=== PATIENT | female | born 1985 | race Caucasian/White ===

== ENCOUNTER → 2018-08-01 14:35 | Outpatient (CLI) | payer OTHER, BC, SELFPAY ==
[2018-08-01 15:40] LABS: Hematocrit 42.6 % (37-47); Hemoglobin 14.3 g/dl (12.0-15.0); Mean Corp Hgb Conc 33.6 g/gl (32-36); Mean Corpuscular Hgb 29.9 pg (27.0-32.0); Mean Corpuscular Volume 88.9 fL (81-99); Mean Platelet Vol. 11.2 fl (6.2-12.0); Platelet Count 200 K/mm3 (150-450); RBC Distribution Width SD 42.1 fl (35.1-43.9); Red Blood Count 4.79 M/mm3 (4.2-5.4); White Blood Count 5.9 K/mm3 (4.4-11.0)
[2018-08-01 15:45] LABS: Scan Indicated on CBC? Y/N NO
[2018-08-01 16:09] LABS: Hemoglobin A1c 5.3 % (4.2-6.3)
[2018-08-01 16:18] LABS: Estradiol 40.6 pg/mL; T4 Free Direct 1.02 ng/dL (0.76-1.46); Thyroid Stim Hormone (TSH) 1.94 uIU/mL (0.358-3.74)
[2018-08-01 16:19] LABS: Progesterone Level 2.98 ng/mL (See Comment)
[2018-08-10 11:59] LABS: HPV Reflexed? NOT INDICATED
== END ==
PROVIDERS: Visit Provider Obstetrics & Gynecology
DX: Z12.4 Encounter for screening for malignant neoplasm of cervix (principal); L65.9 Nonscarring hair loss, unspecified; R53.83 Other fatigue
CPT/HCPCS: 36415; 82670; 83036; 84144; 84403; 84439; 84443; 84481; 85027; 88175; G0145

== ENCOUNTER → 2019-03-07 16:30 | Outpatient (CLI) | payer OTHER, BC, SELFPAY ==
[2018-08-28 09:09] VITALS: BMI 17.9
[2019-03-07 18:36] LABS: hCG Titer Quant., Serum 59681 mIU/mL (1-3)
== END ==
PROVIDERS: Visit Provider Obstetrics & Gynecology
DX: O20.0 Threatened abortion (principal); Z3A.00 Weeks of gestation of pregnancy not specified
CPT/HCPCS: 36415; 84702; 86900

== ENCOUNTER → 2019-03-09 16:12 | Outpatient (CLI) | payer OTHER, BC, SELFPAY ==
[2018-08-28 09:09] VITALS: BMI 17.9
[2019-03-09 19:47] LABS: Chlamydia Trachomatis by PCR Negative (Negative); Neisserai gonorrhoeae by PCR Negative (Negative); Probe Check PASS; Sample Adequacy Control PASS; Specimen Processing Control PASS
[2019-03-14 16:55] LABS: HPV Reflexed? NOT INDICATED
== END ==
PROVIDERS: Visit Provider Obstetrics & Gynecology
DX: Z12.4 Encounter for screening for malignant neoplasm of cervix (principal); Z11.3 Encounter for screening for infections with a predominantly sexual mode of transmission; Z32.01 Encounter for pregnancy test, result positive
CPT/HCPCS: 87491; 87591; 88175; G0145

== ENCOUNTER → 2019-03-30 16:36 | Outpatient (CLI) | payer OTHER, BC, SELFPAY ==
[2019-03-30 17:46] LABS: Color, Urine Yellow (Yellow); Glucose, Dipstick Normal (Normal); Ketone-Dipstick Negative (Negative); Leukocyte Esterase-Dipstick 25 /ul (Negative); Nitrite-Dipstick Negative (Negative); Occult Blood-Urine Negative /ul (Negative); Protein-Dipstick Negative (Negative); Specific Gravity, Urine 1.005 (1.002-1.030); Urine Bilirubin Dipstick Negative (Negative); Urine Clarity Sl. Cloudy (Clear); Urine Urobilinogen Normal (Normal)
[2019-03-30 17:54] LABS: Absolute Lymphocyte Count 1.88 X10^3/ul (0.83-4.51); Absolute Neutrophil Count 4.2 X10^3/uL (2.0-7.7); Basophil# 0.02 X10^3/uL; Basophil% 0.3 % (0-1); Eosinophil# 0.07 X10^3/uL; Eosinophils% 1.1 % (0-5); Hematocrit 36.9 % (37-47); Hemoglobin 12.5 g/dl (12.0-15.0); Lymphocyte # 1.88 X10^3/ul (4.0); Lymphocyte % 28.4 % (19-41); Mean Corp Hgb Conc 33.9 g/gl (32-36); Mean Corpuscular Hgb 29.6 pg (27.0-32.0); Mean Corpuscular Volume 87.4 fL (81-99); Mean Platelet Vol. 10.4 fl (6.2-12.0); Monocyte# 0.44 X10^3/uL; Monocyte% 6.6 % (0-10); Neutrophil % 63.4 % (47-70); Platelet Count 182 K/mm3 (150-450); RBC Distribution Width CV 13.3 % (11.6-14.6); RBC Distribution Width SD 42.7 fl (35.1-43.9); Red Blood Count 4.22 M/mm3 (4.2-5.4); White Blood Count 6.6 K/mm3 (4.4-11.0)
[2019-03-30 17:56] LABS: POSITIVE COUNT NO; POSITIVE DIFFERENTIAL NO; POSITIVE MORPHOLOGY NO
[2019-03-30 18:29] LABS: Thyroid Stim Hormone (TSH) 0.78 uIU/mL (0.358-3.74)
[2019-03-30 19:03] LABS: HIV - WCH Non-Reactive (Nonreactive); Rubella IgG 210.7 IU/mL
[2019-03-31 02:05] LABS: Prenatal RPR NONREACTIVE (NONREACTIVE)
[2019-04-01 12:33] LABS: HEPATITIS B SURFACE AG Negative (Negative); Hep C Antibodies <0.1 s/co ratio (0.0-0.9)
== END ==
PROVIDERS: Visit Provider Obstetrics & Gynecology
DX: Z34.81 Encounter for supervision of other normal pregnancy, first trimester (principal)
CPT/HCPCS: 36415; 81002; 84443; 85025; 86703; 86762; 86803; 87340

== ENCOUNTER → 2019-04-10 | Outpatient (CLI) | payer OTHER, BC, SELFPAY ==
[2018-08-28 09:09] VITALS: BMI 17.9
== END | disposition home or self-care (01) ==
LOC: LAB 16:24
PROVIDERS: Family Provider Family Medicine; PCP Family Medicine
DX: O99.111 Other diseases of the blood and blood-forming organs and certain disorders involving the immune mechanism complicating pregnancy, first trimester (principal); D68.51 Activated protein C resistance; Z82.49 Family history of ischemic heart disease and other diseases of the circulatory system; Z3A.00 Weeks of gestation of pregnancy not specified
CPT/HCPCS: 36415; 81241

== ENCOUNTER → 2019-08-04 15:07 | Outpatient (CLI) | payer OTHER, BC, SELFPAY ==
[2019-08-04 16:15] LABS: Hematocrit 36.1 % (37-47); Hemoglobin 11.9 g/dL (12.0-15.0); Mean Corpuscular Hgb 31.2 pg (27.0-32.0); Mean Corpuscular Volume 94.8 fL (81-99); Mean Platelet Vol. 10.9 fl (6.2-12.0); Platelet Count 159 K/mm3 (150-450); RBC Distribution Width CV 13.4 % (11.6-14.6); RBC Distribution Width SD 46.4 fl (35.1-43.9); Red Blood Count 3.81 M/mm3 (4.2-5.4)
[2019-08-04 16:19] LABS: Glucose Challenge Gest 1H 50g 100 mg/dL (70-140)
== END ==
PROVIDERS: Visit Provider Obstetrics & Gynecology
DX: Z34.83 Encounter for supervision of other normal pregnancy, third trimester (principal)
CPT/HCPCS: 36415; 82950; 85027; 86850

== ENCOUNTER 2019-09-07 04:05 | Outpatient (CLI) | payer OTHER, BC, SELFPAY ==
[2019-09-07 04:37] VITALS: BMI 23.7
[2019-09-07 04:58] LABS: Color, Urine Yellow (Yellow); Glucose, Dipstick Normal (Normal); Ketone-Dipstick Negative (Negative); Leukocyte Esterase-Dipstick Negative /ul (Negative); Nitrite-Dipstick Negative (Negative); Occult Blood-Urine Negative /ul (Negative); Protein-Dipstick Negative (Negative); Urine Bilirubin Dipstick Negative (Negative); Urine Clarity Sl. Cloudy (Clear); Urine Urobilinogen Normal (Normal)
[2019-09-07] MEDS: Acetaminophen 500 MG Tablet 1000 MG PO (06:14)
[2019-09-07 06:20] VITALS: RESP 18
--- NOTE | 2019-09-15 09:04 | OB.TRI.HP_ITS ---
History of Present Illness Was patient seen by the physician?: No Reason For Visit: R/O LABOR Date of Service: 09/07/19 Final GLORY: 10/24/19 Final GLORY Source: US <20 weeks Gestational age: 33 Weeks and 2 Days History of Present Illness: 33+ week intrauterine with mid to low back pain. Also some left lower quadrant in the abdomen. Allergies chlorhexidine Allergy (Verified 09/07/19 04:37) Rash acetaminophen [From Vicodin] Adverse Reaction (Verified 09/07/19 04:38) Other Insomnia, vomiting hydrocodone [From Vicodin] Adverse Reaction (Verified 09/07/19 04:38) Other Insomnia, vomiting - Pertinent Past Medical History Medical History: Past Medical History (Last Updated 08/28/18 @ 09:15 by Loli Dejesus) Asthma Fatigue HISTORY OF TWO CHILD BIRTHS Severe headache Surgical History: Past Surgical History (Last Updated 08/28/18 @ 09:15 by Loli Dejesus) HISTORY OF APPENDIX RUPTURE HISTORY OF LEFT ANKLE SURGERY Laboratory Studies: Laboratory Tests 09/07/19 Range/Units 04:10 Urine Color Yellow (Yellow) Urine Clarity Sl. Cloudy (Clear) Urine pH 7.0 (5.0 - 8.0) Ur Specific [place] 1.010 (1.002-1.030) Urine Protein Negative (Negative) mg/dl Urine Glucose (UA) Normal (Normal) mg/dl Urine Ketones Negative (Negative) mg/dl Urine Occult Blood Negative (Negative) /ul Urine Nitrite Negative (Negative) Urine Bilirubin Negative (Negative) mg/dL Urine Urobilinogen Normal (Normal) mg/dl Ur Leukocyte Esterase Negative (Negative) /ul Physical Exam Vitals: Vital Signs Resp 18 09/07/19 06:20 NST - FHR Rate Baby A NST Reactive:: Yes FHR Category:: Category I Impression/Plan 33+ week intrauterine with low back pain. Likely some round ligament pain. Reactive nonstress test and minimal contractions noted on monitor. Cervix nonthreatening. UA was negative cervix was 1 cm 60% effaced -2 and firm. Given this will discharge to home with routine follow-up. Return if back pain worsens. Use Tylenol to assist with discomfort and increase p.o. fluids.
== END 2019-09-07 06:20 | disposition home or self-care (01) ==
LOC: WPOUT 04:24 → WP 04:30
PROVIDERS: Referring Provider Obstetrics & Gynecology; Visit Provider Obstetrics & Gynecology
DX: O26.893 Other specified pregnancy related conditions, third trimester (principal); Z3A.33 33 weeks gestation of pregnancy; M54.5 Low back pain
CPT/HCPCS: 59025; 59050; 81002; 99218; G0378

== ENCOUNTER → 2019-09-26 16:46 | Outpatient (CLI) | payer OTHER, BC, SELFPAY ==
[2019-09-07 04:37] VITALS: BMI 23.7
== END ==
PROVIDERS: Referring Provider Obstetrics & Gynecology; Visit Provider Obstetrics & Gynecology
DX: Z36.85 Encounter for antenatal screening for Streptococcus B (principal)
CPT/HCPCS: 87081

== ENCOUNTER → 2019-10-10 16:37 | Outpatient (CLI) | payer OTHER, BC, SELFPAY | PROVIDERS: Visit Provider Advanced Practice Midwife | DX: O99.513 Diseases of the respiratory system complicating pregnancy, third trimester (principal); J02.9 Acute pharyngitis, unspecified; Z3A.00 Weeks of gestation of pregnancy not specified | CPT/HCPCS: 87880 ==

== ENCOUNTER 2019-10-24 07:20 | Inpatient (IN) | payer OTHER, BC, SELFPAY ==
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
[2019-10-24 07:45] VITALS: BMI 23.6
[2019-10-24] MEDS: Lactated Ringers 1,000 ML 200 ML IV ×2 (07:50→13:46)
[2019-10-24 08:14] LABS: Absolute Lymphocyte Count 1.94 X10^3/uL (0.83-4.51); Absolute Neutrophil Count 5.1 X10^3/uL (2.0-7.7); Basophil# 0.03 X10^3/uL; Basophil% 0.4 % (0-1); Eosinophil# 0.13 X10^3/uL; Eosinophils% 1.7 % (0-5); Hematocrit 38.5 % (37-47); Lymphocyte # 1.94 X10^3/ul (4.0); Lymphocyte % 24.7 % (19-41); Mean Corp Hgb Conc 33.8 g/dL (32-36); Mean Corpuscular Hgb 31.3 pg (27.0-32.0); Mean Corpuscular Volume 92.5 fL (81-99); Mean Platelet Vol. 10.9 fl (6.2-12.0); Monocyte# 0.57 X10^3/uL; Monocyte% 7.3 % (0-10); NRBC Flagged by Analyzer 0 % (0-5); Neutrophil % 64.9 % (47-70); Platelet Count 157 K/mm3 (150-450); RBC Distribution Width CV 13.4 % (11.6-14.6); RBC Distribution Width SD 45.2 fl (35.1-43.9); Red Blood Count 4.16 M/mm3 (4.2-5.4); White Blood Count 7.9 K/mm3 (4.4-11.0)
[2019-10-24] MEDS: Oxytocin 30 units/NS 500 ml 30 UNITS/500 ML IV.SOLN IV (08:30)
[2019-10-24 08:32] LABS: International Normalized Ratio 0.9; Prothrombin Time (Protime)PT. 12.2 SECONDS (11.7-14.9)
[2019-10-24 08:37] LABS: Partial Thromboplast Time 26.5 Seconds (24.1-36.2)
[2019-10-24] MEDS: Lactated Ringers 500 ML 999 ML IV (10:45)
[2019-10-24] MEDS: fentaNYL-bupivacaine (epidural) 100 ML BAG EPIDURAL (11:11)
--- NOTE | 2019-10-24 12:49 | PCM.PN.BLA ---
Progress Note LABOR PROGRESS NOTE Comfortable w/ epidural AVSS Pitocin inc to 12 mIU/min EFM 120-130s avg variability and accels. Category I tracing UCs q 4-6 mins CX: 5/80/-2 per RN check A/P: 40 wk induction heterozygous Factor V Leiden. Category I tracing. continue Pitocin per protocol Anticipate .
[2019-10-24] MEDS: Oxytocin 30 units/NS 500 ml 30 UNITS/500 ML IV.SOLN 334 UNITS IV (15:06)
--- NOTE | 2019-10-24 17:44 | PCM.OPRPT ---
Vaginal Delivery Maternal Presentation: Elective Induction 40 wk induction of labor. Factor V Leiden heterozygote , on bid heparin Method of Induction: Pitocin, Amniotomy Amniotic Membrane Rupture Type: Artificial Amniotic Fluid Description: Clear Final GLORY: 10/24/19 Final GLORY Source: US <20 weeks Gestational age: 40 Weeks and 0 Days Date of Procedure: 10/24/19 Pre-Operative Diagnosis: 40 wk induction Post-Operative Diagnosis: same Surgery/ Procedure Performed: Spontaneous Vaginal Delivery Anesthesiologist: [place] Hsu MD Type of Anesthesia: Epidural Description of Procedure: of a san viable female infant over intact perineum Head delivered RAHUL. No nuchal cord. Shoulders delivered immediately after head. OP and nares bulb suctioned after delivery. Infant to maternal abdomen with spont cry. Delayed cord clamping for 30 sec then cord clamped times two and cut. Routine cord blood for typing collected. Baby Apgars 9/9 PP exam : no lacerations, no repair required Placenta delivered by spont expulsion, expression. normal appearing and intact with trailing membranes. 3V cord EBL 300 cc Pt and tolerated delivery well to recovery, stable condition Ray jim counts correct times two. Presentation: Vertex, RAHUL Placental Delivery Description: Spontaneous, Expressed Placenta Disposition: [facility] Cord Vessel Description: 3 Vessels Cord Entanglement: None Estimated Blood Loss: 300 A gender: Female (1 minute): 9 (5 minute): 9 Episiotomy Description: None Laceration: None Medications given after delivery: IV Pitocin Complications: None
[2019-10-24] MEDS: Acetaminophen 500 MG Tablet 1000 MG PO (17:50)
--- NOTE | 2019-10-24 17:52 | DCINST_ITS ---
Discharge Diet: No Restrictions Discharge Activity: May Shower, May Take a Tub Bath Return to work on:: 12/04/19 May resume sexual activity in: 4-6 weeks Additional Activity Instructions:: Nothing in the vagina for 4-6 weeks. You may return to work/school in 6 weeks. Additional Instructions: If you experience any of the following, contact your healthcare provider. * Bleeding that soaks a pad every hour for 2 hours * Fever 100.4 or higher * Unrelieved abdominal pain * Problems urinating (including inability to urinate or burning while urinating). * Visual changes * Severe headache * Flu-like symptoms * Pain or redness in one of both of your breasts * Pain, warmth, tenderness or swelling in your legs, especially the calf area * Frequent nausea and vomiting * Symptoms of depression or anxiety If you experience any of the following, call 911 or go to the nearest Emergency Room. * Chest pain * Problems breathing * Seizure activity * Partial or complete paralysis of a body part, slurred speech, weakness or drooping of the face, or a sudden inability to walk or hold your balance Allergies/Adverse Reactions: Allergies chlorhexidine Allergy (Verified 09/07/19 04:37) Rash acetaminophen [From Vicodin] Adverse Reaction (Verified 09/07/19 04:38) Other Insomnia, vomiting hydrocodone [From Vicodin] Adverse Reaction (Verified 09/07/19 04:38) Other Insomnia, vomiting Medications to take at Discharge Enoxaparin Sodium [Lovenox] 40 mg SQ DAILY 09/07/19 Vits [Prenatabs FA] 1 tab PO DAILY 09/07/19 Albuterol Sulfate [Albuterol Sulfate Hfa] 10/24/19 Enoxaparin [Lovenox] 40 mg SUBCUT DAILY@0600 42 Days #42 syringe 10/24/19 The following prescriptions were given: Enoxaparin [Lovenox] 40 mg SUBCUT DAILY@0600 42 Days #42 syringe Transmission Status: Pending to [facility] When: Call to make an appointment with your doctor in 6 weeks. If you had elevated Blood Pressure or 4th degree laceration you will need to be seen in 2 weeks. Please Follow Up With: Kain Hsu MD - [phone] When: for check up in 6 wk as planned. Primary Care Physician: Juan Babcock [Primary Care Provider] - Test Results: Test results from this visit will be discussed in further detail at your follow- up appointment, if applicable. Proposed Discharge Date: 10/26/19
[2019-10-24 20:08] VITALS: BP 107/57; PULSE 73; RESP 16; TEMP 36.7
[2019-10-24 23:58] VITALS: BP 108/61; PULSE 68; RESP 18; TEMP 36.7
[2019-10-25] MEDS: Acetaminophen 500 MG Tablet 1000 MG PO ×3 (02:01→18:50)
[2019-10-25] MEDS: Senna/Docusate Sodium 1 Tablet PO (02:01)
[2019-10-25 04:00] VITALS: BP 125/50; PULSE 73; RESP 16; TEMP 36.6
[2019-10-25] MEDS: Enoxaparin 40 MG/0.4 ML Syringe SC (05:30)
--- NOTE | 2019-10-25 07:29 | PN.OBGYN_ITS ---
Subjective: PPD#1 Factor V Leiden heterozygote Doing well. Some pain, cramping more when nursing. states baby up all night nursing. No concerns voiced S/L in R wrist (to be removed today) - Physical Exam Vitals/I&O's: Vital Signs Temp Pulse Resp BP 97.8 F 73 16 125/50 H 10/25/19 04:00 10/25/19 04:00 10/25/19 04:00 10/25/19 04:00 Oxygen Delivery Method Room Air Weight: 69.4 kg Body Mass Index (BMI) 23.6 Intake and Output for Last 24 Hours 10/23/19 10/24/19 10/25/19 23:59 23:59 23:59 Intake Total 2332.19 / 2332.19 Output Total 1600 / 1600 Balance 732.19 / 732.19 General: Alert, Oriented x3, Cooperative, No apparent distress HEENT: Atraumatic, EOMI Neck: Supple Abdomen: Soft - fundus firm NT at umbilicus Neurological: Cranial nerves II-XII grossly intact Psych/Mental Status: Normal Affect Laboratory Results 10/24/19 07:50: WBC 7.9, RBC 4.16 L, Hgb 13.0, Hct 38.5, MCV 92.5, MCH 31.3, MCHC 33.8, RDW Std Deviation 45.2 H, RDW Coeff of Melita 13.4, Plt Count 157, MPV 10.9, Immature Gran % (Auto) 1.000 H, Neut % (Auto) 64.9, Lymph % (Auto) 24.7, [place] % (Auto) 7.3, Eos % (Auto) 1.7, Baso % (Auto) 0.4, Absolute Neuts (auto) 5.1, Absolute Lymphs (auto) 1.94, Nucleated RBC % 0 10/24/19 07:50: Blood Type O NEGATIVE, Antibody Screen Not Reportable 10/24/19 07:50: PT 12.2, INR 0.9, APTT 26.5 10/24/19 07:50: Antibody Screen NEGATIVE Current Medications Acetaminophen (Tylenol) 1,000 mg PO Q8H PRN PRN PRN Reason: Pain Score 1-3/10 Last Admin: 10/25/19 02:01 Dose: 1,000 mg Documented by: Bisacodyl (Dulcolax) 10 mg RECTAL UD PRN PRN Reason: If no BM Dibucaine (Dibucaine) 1 applic TOPICAL TID PRN PRN; Protocol PRN Reason: Discomfort Enoxaparin Sodium (Lovenox) 40 mg SC DAILY@0600 VANNESSA Last Admin: 10/25/19 05:30 Dose: 40 mg Documented by: Hydrocortisone (Hytone) 1 applic TOPICAL TID PRN PRN; Protocol PRN Reason: Discomfort Methylergonovine Maleate (Methergine) 0.2 mg IM X1 PRN PRN Reason: Excess bleeding/uterine atony Ondansetron HCl (Zofran) 4 mg IV Q4H PRN PRN PRN Reason: Nausea Oxycodone HCl (Oxyir) 5 - 10 mg PO Q4H PRN PRN PRN Reason: Pain Score 4-10/10 Senna/Docusate Sodium (Senokot-S, Venessa-Colace) 1 - 2 tablet PO DAILY PRN PRN PRN Reason: Constipation Last Admin: 10/25/19 02:01 Dose: 2 tablet Documented by: Simethicone (Mylicon) 80 mg PO PCHS PRN PRN Reason: Indigestion/Stomach pain Sodium Chloride () 5 - 15 ml IV UD PRN PRN Reason: SALINE FLUSH Zolpidem Tartrate (Ambien (Generic)) 5 mg PO QHS PRN PRN PRN Reason: Insomnia Medical Necessity - Tobacco Use Smoking Status: Never smoker Assessment/Plan PPD#1 40 wk Factor V Leiden heterozygote Stable pp. Continue care. May elect dischg later today and to inform nursing staff if elects this. Resuming Lovenox today 40 mc SC daily and RF sent in for 6 wks.
[2019-10-25 10:00] VITALS: BP 119/63; PULSE 67; RESP 18; TEMP 36.8
[2019-10-25 13:50] VITALS: BP 107/68; PULSE 63; RESP 18; TEMP 36.6
[2019-10-25 16:50] VITALS: BP 100/59; PULSE 68; RESP 16; TEMP 37.2
[2019-10-25 19:32] VITALS: BP 114/54; PULSE 70; RESP 16; TEMP 37
[2019-10-26 01:00] VITALS: BP 100/59; PULSE 67; RESP 16; TEMP 36.4
[2019-10-26] MEDS: Acetaminophen 500 MG Tablet 1000 MG PO ×2 (03:19→13:07)
[2019-10-26] MEDS: Enoxaparin 40 MG/0.4 ML Syringe SC (05:49)
--- NOTE | 2019-10-26 09:01 | PCM.DC.SUM ---
Discharge Date and Diagnosis Date of Admission: 10/24/19 Date of Discharge: 10/26/19 - Primary Discharge Diagnosis vaginal delivery day #2 Hospital Course and Treatment Operations: None Procedures: None Summary of Care Provided: The patient is a 34 year old F [] Subjective: Feeling well, ready to leave today. daughter well. Denies pain. Objective: VSS. Fundus u/2. Passing flatus. Wants continuity writer to do research on forms of control that she may take with her Dx of Factor V. Will discuss further at 6 week visit. - Physical Exam Vitals/I&O's: Vital Signs Temp Pulse Resp BP 97.6 F L 67 16 100/59 L 10/26/19 01:00 10/26/19 01:00 10/26/19 01:00 10/26/19 01:00 Oxygen Delivery Method Room Air Weight: 69.4 kg Body Mass Index (BMI) 23.6 Intake and Output for Last 24 Hours 10/24/19 10/25/19 10/26/19 23:59 23:59 23:59 Intake Total 2332.19 / 2332.19 Output Total 1600 / 1600 Balance 732.19 / 732.19 General: Alert, Oriented x3, Cooperative HEENT: Atraumatic, PERRLA, EOMI, Normocephalic Neck: Supple, No JVD, Negative Carotid Bruits Lungs: Clear to auscultation, Normal air movement Cardiovascular: Regular rate, No murmurs Abdomen: Bowel Sounds Present, Soft, Non Tender, Passing Flatus Extremities: No edema, Capillary Refill Less than 3 Seconds Skin: No rashes, No breakdown Musculoskeletal: No Tenderness to Palpation of Joints or Extremities Neurological: Cranial nerves II-XII grossly intact Psych/Mental Status: Normal Affect, Appropriate Current Medications Acetaminophen (Tylenol) 1,000 mg PO Q8H PRN PRN PRN Reason: Pain Score 1-3/10 Last Admin: 10/26/19 03:19 Dose: 1,000 mg Documented by: Bisacodyl (Dulcolax) 10 mg RECTAL UD PRN PRN Reason: If no BM Dibucaine (Dibucaine) 1 applic TOPICAL TID PRN PRN; Protocol PRN Reason: Discomfort Enoxaparin Sodium (Lovenox) 40 mg SC DAILY@0600 VANNESSA Last Admin: 10/26/19 05:49 Dose: 40 mg Documented by: Hydrocortisone (Hytone) 1 applic TOPICAL TID PRN PRN; Protocol PRN Reason: Discomfort Methylergonovine Maleate (Methergine) 0.2 mg IM X1 PRN PRN Reason: Excess bleeding/uterine atony Ondansetron HCl (Zofran) 4 mg IV Q4H PRN PRN PRN Reason: Nausea Oxycodone HCl (Oxyir) 5 - 10 mg PO Q4H PRN PRN PRN Reason: Pain Score 4-10/10 Senna/Docusate Sodium (Senokot-S, Venessa-Colace) 1 - 2 tablet PO DAILY PRN PRN PRN Reason: Constipation Last Admin: 10/25/19 02:01 Dose: 2 tablet Documented by: Simethicone (Mylicon) 80 mg PO PCHS PRN PRN Reason: Indigestion/Stomach pain Sodium Chloride () 5 - 15 ml IV UD PRN PRN Reason: SALINE FLUSH Zolpidem Tartrate (Ambien (Generic)) 5 mg PO QHS PRN PRN PRN Reason: Insomnia Discharge Diet: No Restrictions Discharge Activity: May Shower, May Take a Tub Bath Return to work on:: 12/04/19 May resume sexual activity in: 4-6 weeks Additional Activity Instructions:: Nothing in the vagina for 4-6 weeks. You may return to work/school in 6 weeks. Home Medications: Medications to take at Discharge Enoxaparin Sodium [Lovenox] 40 mg SQ DAILY 09/07/19 Vits [Prenatabs FA] 1 tab PO DAILY 09/07/19 Albuterol Sulfate [Albuterol Sulfate Hfa] 10/24/19 Enoxaparin [Lovenox] 40 mg SUBCUT DAILY@0600 42 Days #42 syringe 10/24/19 Following Prescrptions Were Given to Patient: Enoxaparin [Lovenox] 40 mg SUBCUT DAILY@0600 42 Days #42 syringe Transmission Status: Received by [facility] Primary Care Physician: Juan Babcock [Primary Care Provider] - Please Follow Up With: Kain Hsu MD - [phone] When: for check up in 6 wk as planned. Disposition: Home Minutes spent on discharge:: 20 Medical Necessity - Tobacco Use Smoking Status: Never smoker Meaningful Use Info Meaningful Use Diagnoses (Choose all that apply): None applicable
[2019-10-26 09:17] VITALS: BP 109/63; PULSE 77; RESP 18; TEMP 37.1; O2SAT 97
[2019-10-26] MEDS: Senna/Docusate Sodium 1 Tablet PO (09:38)
[2019-10-26 13:16] VITALS: BP 98/58; PULSE 78; RESP 16; TEMP 36.9; O2SAT 98
== END 2019-10-26 13:50 | disposition home or self-care (01) | DRG 806 ==
PROVIDERS: Admitting Provider Obstetrics & Gynecology; Family Provider Family Medicine; PCP Family Medicine; Referring Provider Obstetrics & Gynecology; Visit Provider Obstetrics & Gynecology
DX: O99.12 Other diseases of the blood and blood-forming organs and certain disorders involving the immune mechanism complicating childbirth (principal); D68.51 Activated protein C resistance; Z37.0 Single live birth; O99.52 Diseases of the respiratory system complicating childbirth; J45.909 Unspecified asthma, uncomplicated; Z3A.40 40 weeks gestation of pregnancy
CPT/HCPCS: 59025; 59050; 85025; 85610; 85730; 86850; 86900; 86901; 99218; J7120; G0378

== ENCOUNTER → 2020-11-03 | Outpatient (CLI) | payer OTHER, BC, SELFPAY ==
[2020-11-03 12:44] VITALS: BMI 17.9
== END | disposition home or self-care (01) ==
PROVIDERS: PCP Family Medicine; Referring Provider Physician Assistant; Visit Provider Physician Assistant
DX: U07.1 COVID-19 (principal)
CPT/HCPCS: 87635; U0003

== ENCOUNTER → 2022-08-14 | Outpatient (CLI) | payer OTHER, BC, SELFPAY ==
--- NOTE | 2022-08-14 15:47 | MRI_ITS ---
STUDY: MRI BRAIN WITH AND WITHOUT CONTRAST (ATTENTION INTERNAL AUDITORY CANALS - I.A.C.''s) REASON FOR EXAM: Female, 37 years old. ASYMMETRIC HEARING LOSS R and gt;L TECHNIQUE: Standardized multiplanar fat and water weighted pulse sequences were obtained. IV 10cc clariscan was administered for the contrast portion of the examination. COMPARISON: None. FINDINGS: No intracranial mass, mass effect or midline shift. No enhancing lesion. No hemorrhage, territorial infarct or acute ischemia. Normal bilateral temporal bones. Normal bilateral internal auditory canals. There is no demonstrated intracanalicular or cisternal vestibular schwannoma (acoustic neuroma). There is no enhancement of the bilateral VIIth or VIIIth cranial nerves. Normal bilateral cochlea, vestibules and semicircular canals. No enhancing lesion in the cerebellopontine angles. Normal size of the ventricles and extra-axial spaces for the patient''s age. Normal white matter tracts of the supratentorial brain. Normal bilateral basal ganglia. Normal thalami. Normal flow voids within the major intracranial circulation suggesting patency by spin echo criteria. There is no enhancing intra-axial or extra-axial abnormality. There is no extra-axial fluid accumulation. Pituitary gland is normal in height. Normal midbrain, franky and medulla. Normal cerebellum. Normal basal cisterns. Normal visualized paranasal sinuses. Normal calvarium and skull base. Normal visualized soft tissue structures. MRI/Brain W/WO Contrast IMPRESSION: Normal unenhanced and enhanced MRI of the bilateral internal auditory canals (I.A.C''s). Electronically Signed: Bailee Graham MD at 17:39 EDT Reading Location ID and State: [id number] / Tel , Service support ,
== END | disposition home or self-care (01) ==
LOC: MRI 15:45
PROVIDERS: PCP Family Medicine; Referring Provider Otolaryngology; Visit Provider Otolaryngology
DX: H90.3 Sensorineural hearing loss, bilateral (principal)
CPT/HCPCS: 70553; A9575